=== PATIENT | male | born 1995 ===

== ENCOUNTER 2018-10-26 11:47 | Emergency (ER) | payer OTHER ==
--- NOTE | 2018-10-26 12:56 | ED ---
Upper Extremity Pain - HPI Summary HPI Summary: Pt. is a 22 y.o male who presents to the ER for right shoulder and neck pain that he noticed upon awakening today. Pt. states he was practicing [employer] arts yesterday when he believes he strained his right shoulder. He denies radicular numbness, tingling or weakness in right arm. No past medical hx. Has not taken tylenol or motrin. Sxs are mild in severity. Movement makes sxs worse. Rest makes sxs better. - History of Current Complaint Chief Complaint: EDExtremityUpper Stated Complaint: RT SHOULDER PAIN Time Seen by Provider: 10/26/18 12:19 Hx Obtained From: Patient - Allergies/Home Medications Allergies/Adverse Reactions: Allergies Allergy/AdvReac Type Severity Reaction Status Date / Time No Known Allergies Allergy Verified 10/26/18 11:52 Home Medications: Home Medications NK [No Home Medications Reported] 10/26/18 [History Confirmed 10/26/18] PMH/Surg Hx/FS Hx/Imm Hx Previously Healthy: Yes Infectious Disease History: No Infectious Disease History: Denies: Traveled Outside the [place] in Last 30 Days - Family History Known Family History: Positive: Non-Contributory - Social History Occupation: Employed Full-time Lives: Alone Alcohol Use: None Substance Use Type: Reports: None Smoking Status (MU): Never Smoked Tobacco Review of Systems Positive: Other - Right shoulder and right sided neck pain Negative: Headache, Weakness, Paresthesia, Numbness All Other Systems Reviewed And Are Negative: Yes Physical Exam Triage Information Reviewed: Yes Vital Signs On Initial Exam: Initial Vitals Temp Pulse Resp BP Pulse Ox 98.2 F 64 16 139/97 99 10/26/18 11:49 10/26/18 11:49 10/26/18 11:49 10/26/18 11:49 10/26/18 11:49 Vital Signs Reviewed: Yes Appearance: Positive: Well-Appearing - Pt. sitting on bed in NAD. Skin: Positive: Warm, Dry Head/Face: Positive: Normal Head/Face Inspection Eyes: Positive: Normal, EOMI, Conjunctiva Clear Neck: Positive: Supple, Other: - No midline tenderness. Mild pain over the right trapizeus muscle. Musculoskeletal: Positive: Other - 5/5 strength in right hand with full ROM of right shoulder with minimal pain. Neurological: Positive: Normal, CN Intact II-III Psychiatric: Positive: Affect/Mood Appropriate Diagnostics - Vital Signs Vital Signs Temp Pulse Resp BP Pulse Ox 10/26/18 11:49 98.2 F 64 16 139/97 99 - Laboratory Lab Statement: Any lab studies that have been ordered have been reviewed, and results considered in the medical decision making process. Course/Dx - Course Course Of Treatment: Patient presenting with lateral neck and shoulder pain after approximately martial arts yesterday. No specific injury. He has no midline tenderness and muscle range of motion of his right shoulder with minimal pain. No imaging was ordered today. We'll treat with anti- inflammatories for muscle strain. Advised to apply warm compresses to activity as tolerated. Can f.u with the [facility] if needed. Will return if sxs change or worsen. Pt. understands and agrees with plan. - Diagnoses Differential Diagnosis/HQI/PQRI: Positive: Contusion, Fracture (Closed), Strain , Sprain Provider Diagnoses: Muscle strain Discharge - Sign-Out/Discharge Documenting (check all that apply): Patient Departure - Discharge Plan Condition: Good Disposition: HOME Patient Education Materials: Muscle Strain (ED) Referrals: [facility] [Outside] Additional Instructions: Call the [facility] Sunday to schedule a follow up appointment Apply warm compresses to neck and shoulder Ibuprofen 600mg every 6-8 hours as directed for pain x one week Avoid heavy lifting and aggressive exercise until pain improves Return to ER if symptoms change or worsen - Billing Disposition and Condition Condition: GOOD Disposition: Home
[2018-10-26 13:08] VITALS: BP 125/75
== END 2018-10-26 13:07 | disposition home or self-care (01) ==
LOC: ED 11:47
DX: S46.911A Strain of unspecified muscle, fascia and tendon at shoulder and upper arm level, right arm, initial encounter (principal); X58.XXXA Exposure to other specified factors, initial encounter; Y92.9 Unspecified place or not applicable; M54.2 Cervicalgia
CPT/HCPCS: 99282